=== PATIENT | male | born 1995 | race Caucasian/White ===

== ENCOUNTER 2018-11-16 18:27 | Emergency (ER) | payer SELFPAY ==
[~2018-11-16] VITALS: Ht 182.9 cm; Wt 93.6 kg
[~2018-11-16 18:27] MED LIST: NO MEDS
[2018-11-16 18:49] VITALS: BP 141/67; PULSE 60; RESP 20; Ht 182.9 cm; Wt 93.6 kg
== END 2018-11-16 18:42 | disposition left against medical advice (07) ==
LOC: FTE 18:27
DX: Z53.21 Procedure and treatment not carried out due to patient leaving prior to being seen by health care provider (principal)

== ENCOUNTER 2018-11-18 18:16 | Emergency (ER) | payer SELFPAY ==
[~2018-11-18] VITALS: Ht 177.8 cm; Wt 92.7 kg
[2018-11-18 18:22] VITALS: Ht 177.8 cm; Wt 92.7 kg
[2018-11-18] MEDS ORDERED: KETOROLAC 30 MG INJ IM STA (23:40)
--- NOTE | 2018-11-18 23:44 | ERD ---
ER Documentation Chief Complaint Chief Complaint R shoulder pain d/t injury 1 month ago HPI This is a 22-year-old male presents emergency department with complaints of right shoulder pain. Pain was described as achy and reproducing. Stated that he had an injury about a month ago, tripped, fell and landed on his right shoulder. Also stated that he is right-handed and that every time he works the pain is much worse. Denies headache, head injury, loss of consciousness, dizziness, neck pain, neck stiffness, throat pain, difficulty swallowing, difficulty breathing lying flat, chest pain, back pain, abdominal pain, nausea, vomiting, constipation, diarrhea, urinary symptoms, loss of bowel and bladder control, trauma, injury, falls, difficulty walking due to pain, numbness or tingling sensation, calf pain, recent travel, recent major surgery in the last 3 weeks, calf pain, recent long travel, recent exposure to any illness, recent antibiotic use in the last 3 months, fever, chills, seizures. Past medical history: Surgical history: Social: Denies smoking, use of alcoholic beverages, use of illegal drugs. ROS All systems reviewed and are negative except as per history of present illness. Medications Home Meds Active Scripts Ibuprofen* (Motrin*) 800 Mg Tab, 800 MG PO Q6H PRN for PAIN AND OR ELEVATED TEMP, #30 TAB Prov:KARIE DUQUE 11/18/18 Reported Medications [No Meds] No Conflict Check 03/02/11 Allergies Allergies: Coded Allergies: No Known Drug Allergies (Verified Allergy, Mild, 03/02/11) PMhx/Soc Medical and Surgical Hx: pt denies Medical Hx, pt denies Surgical Hx History of Surgery: No Anesthesia Reaction: No Hx Neurological Disorder: No Hx Respiratory Disorders: No Hx Cardiac Disorders: No Hx Psychiatric Problems: No Hx Miscellaneous Medical Probl: No Hx Alcohol Use: No Hx Substance Use: No Hx Tobacco Use: No Smoking Status: Never smoker Physical Exam Vitals Physical Exam Const: No acute distress Head: Atraumatic Eyes: Normal Conjunctiva ENT: Normal External Ears, Nose and Mouth. Neck: Full range of motion. No meningismus. Resp: Clear to auscultation bilaterally Cardio: Regular rate and rhythm, no murmurs Abd: Soft, non tender, non distended. Normal bowel sounds Skin: No petechiae or rashes Back: No midline or flank tenderness Ext: No cyanosis, or edema. Right shoulder: Skin is not warm to touch. Skin is intact. Good and full range of motion. Tenderness to palpation. Right clavicle area is no crepitus/deformity/discoloration/tenderness. C-spine is in midline with good and full range of motion and is no swelling/deformity/bulging/point of tenderness. Right humerus has no deformity/tenderness/discoloration. Right elbow is unremarkable. Right forearm/wrist/hand are unremarkable. Right radial pulse is unremarkable. Has good and full function of his right hand. Capillary refills to right upper extremity are less than 2 seconds. Left upper extremity is unremarkable. Neur: Awake and alert. No neurological deficit. Psych: Normal Mood and Affect Results 24 hrs Current Medications Medications Dose Sig/[place] Start Time Status Last (Trade) Ordered Route PRN Stop Time Admin Dose Reason Admin Ketorolac 30 mg ONCE STAT 11/18/18 DC 11/19/18 Tromethamine IM 23:40 00:19 (Toradol) 11/18/18 23:41 1 tab ONCE ONCE 11/19/18 DC 11/19/18 Acetaminophen PO 00:00 00:20 / 11/19/18 00:01 Hydrocodone Bitart ([place] (5/325)) Procedures/MDM Diagnostic tests: X-ray of the right shoulder: 1. Ligamentous injury at the right acromioclavicular joint. 2. Otherwise, no acute fracture. Treatment: Toradol IM. [place] p.o. Sling application. Re-evaluation: Denies pain. Good and full range of motion of his right shoulder. No neurovascular deficit prior to and after the application of sling. Differential diagnosis I have low suspicion for septic joint, sepsis, displaced fracture, shoulder di slocation, clavicular fracture, punctured lungs, compartment syndrome. Final diagnosis: Shoulder contusion. Prescription: Motrin. Follow-up with PCP in the next 24-48 hours. PCP to do an MRI if symptoms persist. Come back here in the emergency department for any new symptoms or any worsening symptoms. All questions and concerns were answered. Patient and family members verbalized understanding and agreed with plan of care. Hemodynamically stable on discharge. Departure Diagnosis: Primary Impression: Shoulder injury Additional Impression: Shoulder contusion Condition: Stable Additional Instructions: Follow-up with PCP in the next 24-48 hours. PCP to do an MRI if symptoms persist. Come back here in the emergency department for any new symptoms or any worsening symptoms. KARIE DUQUE Nov 18, 2018 23:44
[2018-11-18] MEDS ORDERED: IBUP800T48 PO (23:45)
[2018-11-19] MEDS ORDERED: HYDROCODONE/APAP (5/325) TAB PO ONE
[2018-11-19 01:30] VITALS: BP 137/86; PULSE 60; RESP 20
== END 2018-11-19 01:45 | disposition home or self-care (01) ==
LOC: FTE 18:16
DX: S40.011A Contusion of right shoulder, initial encounter (principal); W01.0XXA Fall on same level from slipping, tripping and stumbling without subsequent striking against object, initial encounter; Y92.9 Unspecified place or not applicable
CPT/HCPCS: 73030; J1885; 96372